=== PATIENT | female | born 1960 | race Two or more races ===

== ENCOUNTER 2024-01-04 06:51 | Day surgery (SDC) | payer OTHER ==
[2023-12-28 13:21] LABS: HEMOGLOBIN 12.4 g/dL (12.0-15.00); MEAN CELL VOLUME 90.9 fL (80.00-100.00); MEAN CORPUSCULAR HEMOGLOBIN 31.3 pg (27.00-32.0); MEAN CORPUSCULAR HGB CONC 34.4 g/dl (32.0-36.0); PLATELET COUNT 218 K/uL (150-450); RED BLOOD COUNT 3.96 M/uL (4.00-6.00); RED CELL DISTRIBUTION WIDTH 13.1 % (11.5-14.5)
[2023-12-28 13:23] LABS: URINE APPEARANCE Clear; URINE BILIRRUBIN Negative (NEGATIVE); URINE BLOOD Negative; URINE COLOR Yellow; URINE GLUCOSE Negative (NEGATIVE); URINE LEUKOCYTE Negative; URINE NITRATE Negative; URINE PROTEIN Negative (NEGATIVE)
[2023-12-28 13:27] LABS: URINE EPITHELIAL CELLS 2.4 uL (0.0-38.8); URINE RBC 4.2 uL (0.0-20.8); URINE WBC 3.5 uL (0.0-23.2)
[2023-12-28 13:45] LABS: INR 1.03; PARTIAL THROMBOPLASTIN TIME 28.4 SECONDS (22.0-34.0); PROTHROMBIN TIME 10.8 SECONDS (9.0-11.5)
[2023-12-28 13:54] LABS: ALBUMIN 3.7 gm/dL (3.4-5.0); BILIRUBIN TOTAL 0.43 mg/dL (0.3-1.2); CALCIUM 9.3 mg/dL (8.5-10.1); CREATININE SERUM 0.83 mg/dL (0.55-1.02); GFR 69.43; GLOBULINA 4.1 G/DL (2.4-3.5); POTASSIUM 3.76 mEq/L (3.5-5.1); TOTAL PROTEIN 7.8 gm/dL (6.4-8.2)
[2024-01-04] MEDS ORDERED: MEPERIDINE HCL/PF 25 MG/ML VIAL IM PRN (11:15)
[2024-01-04] MEDS ORDERED: CEFAZOLIN SODIUM 1,000 MG VIAL IV ONE (11:15)
[2024-01-04] MEDS ORDERED: PROMETHAZINE HCL 25 MG/ML AMPUL IM PRN (11:15)
[2024-01-04] MEDS ORDERED: DUI500 PO (11:18)
[2024-01-04] MEDS ORDERED: TRAM1TAB98 PO (11:18)
[2024-01-04] MEDS ORDERED: CEFADROXIL 500 MG CAPSULE PO SCH (21:00)
== END 2024-01-04 14:55 | disposition home or self-care (01) ==
LOC: CIR.AMB 06:51
PROVIDERS: ATTEND Orthopaedic Surgery Sports Medicine
DX: M23.321 Other meniscus derangements, posterior horn of medial meniscus, right knee (principal); M17.11 Unilateral primary osteoarthritis, right knee; M22.41 Chondromalacia patellae, right knee; M23.51 Chronic instability of knee, right knee; M67.51 Plica syndrome, right knee